=== PATIENT | male | born 1955 | race Caucasian/White ===

== ENCOUNTER → 2016-11-26 | Outpatient (CLI) | payer OTHER | LOC: RAD 13:14 | PROVIDERS: ATTEND Psychiatry & Neurology Neurology | DX: G45.0 Vertebro-basilar artery syndrome (principal) | CPT/HCPCS: 93306 ==

== ENCOUNTER → 2016-11-27 | Outpatient (CLI) | payer OTHER ==
--- NOTE | 2016-11-27 13:00 | MRI ---
STUDY: MRI OF THE BRAIN WITHOUT GADOLINIUM HISTORY: Vertebral basilar artery syndrome. Dizziness, muscle weakness, slurred speech about 2 weeks ago. Technique: Multiplanar multi-sequence MRI of the brain was obtained utilizing standard departmental p rotocol. Sagittal and axial T1, axial T2, FLAIR, diffusion (DWI/ADC) images through the brain were pe rformed. Comparison: None. Findings: The sulci, cisterns and ventricles are prominent consistent with diffuse volume loss. There are confl uent and scattered foci of T2 prolongation in the periventricular and subcortical white matter of bot h hemispheres. This is a nonspecific finding which likely represents microangiopathic change in a pat ient of this age. There is a focus of T2 shine through in the ventral mid patrick, asymmetric to the right of midline. There is associated T2 hyperintensity on FLAIR and T2 SARAH images. There is no evidence of acute hemor rhage, mass, mass effect, or midline shift. There are no abnormal intra-axial or extra-axial fluid co llections. The major intracranial vascular flow voids appear intact. The left vertebral artery appears dominant. IMPRESSION: 1. 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 2. Nonspecific white matter change and volume loss. Reported By:
--- NOTE | 2016-11-27 13:04 | MRI ---
STUDY: MRA OF THE BRAIN HISTORY: Vertebral basilar artery syndrome. Dizziness, muscle weakness, speech slurred for about 2 w eeks. Comparison: Brain MRI from November 27, 2016. Technique: 3D [id number] imaging of the intracranial circulation was performed. Findings: 3D [id number] MRA examination shows normal flow related enhancement in the major intracranial art eries. There is no evidence of hemodynamically significant stenosis or aneurysm. Posterior communicat ing arteries are not identified. The left vertebral artery is dominant. IMPRESSION: 1. Normal MRA of the brain. Reported By:
--- NOTE | 2016-11-27 13:18 | MRI ---
STUDY: MRA NECK History: Vertebral basilar arteries syndrome. Technique: A 2D [id number] MRA examination of the neck was performed. Subsequently, a 3D time-of- flight MRA examination of the neck was performed. 3D reformatted images were performed and reviewed. Comparison: None. Findings: MRA examination of the neck shows normal flow related enhancement of the major arteries of the neck. The carotid arteries are normal in appearance bilaterally, without evidence of hemodynamica lly significant stenosis or dissection. The left vertebral artery appears dominant. There is normal f low related enhancement in both vertebral arteries, to the level of their dural insertion and to the basilar artery. Impression: Normal MRA examination of the neck, without evidence of hemodynamically significant steno sis or dissection. Reported By:
== END ==
LOC: RAD 08:00
PROVIDERS: ATTEND Psychiatry & Neurology Neurology
DX: G45.0 Vertebro-basilar artery syndrome (principal)
CPT/HCPCS: 70544; 70547; 70551; 95819